=== PATIENT | male | born 1995 | race Caucasian/White ===

== ENCOUNTER 2021-01-06 16:32 | Emergency (ER) | payer OTHER, SELFPAY ==
[2021-01-06 18:07] VITALS: BP 148/95; PULSE 60; RESP 12; TEMP 37.3; O2SAT 99; BMI 33.4
--- NOTE | 2021-01-06 20:08 | XRR_ITS ---
PROCEDURE INFORMATION: Exam: XR Left Foot Exam date and time: 01/06/2021 8:08 PM Age: 25 years old Clinical indication: Injury or trauma; Other: Machinery on foot; Work related; Blunt trauma; Injury date: 01/06/2021; Injury details: [employer] filler picker at work came over on left foot. Majority of injury/pain - great and second toes. TECHNIQUE: Imaging protocol: XR Left foot. Views: 3 or more views. COMPARISON: No relevant prior studies available. FINDINGS: Bones/joints: Mildly comminuted fracture lucencies in the great toe distal phalanx with no significant displacement. Small oblique fracture in the middle phalanx of the 2nd digit involving the proximal base on the medial side of the bone. Intra-articular extension into the PIP joint. Joint space alignments are otherwise normal. Soft tissues: Mild soft tissue edema over the dorsal aspect. XR/XR foot LT min 3V* [id number] IMPRESSION: 1. Acute fracture in the great toe distal phalanx. 2. Acute fracture in the middle phalanx of the 2nd toe.
--- NOTE | 2021-01-06 20:09 | W.ED.EXTPRO ---
HPI - Extremity Problem General: Chief complaint: Extremity Injury, Lower Stated complaint: L FOOT INJURY Time Seen by Provider: 01/06/21 20:07 History of Present Illness: HPI Narrative: 25-year-old male patient comes in today with injury to the left foot great toe. Patient reports a tractor while at work ran over the distal end of his foot mainly involving the first 2 toes of the left foot. Patient is ambulatory. Patient appears well. Review of Systems General: Reports: 10 or more systems reviewed and unremarkable except in HPI and below Musc: Reports: other (Left foot injury.) Physical Exam Const: COMMON NORMALS: no acute distress and patient oriented x3 GENERAL APPEARANCE: cooperative HENMT: COMMON NORMALS: normocephalic and Normal external nose present HEAD & SCALP: normal to inspection and normocephalic NOSE: Normal external nose present MOUTH: Normal oral and palatal mucosa present Eye: GENERAL EYE: appearance normal, both eyes and all related structures Neck/C-Spine: COMMON NORMALS: full ROM Chest: COMMONS NORMALS: normal inspection of the chest Resp: COMMON NORMALS: normal respiratory effort EFFORT & INSPECTION: Yes able to speak in complete sentences Cardio: COMMON NORMALS: regular rate and regular rhythm RATE: regular rate RHYTHM: regular rhythm GI: COMMON NORMALS: non-tender Extremity: NARRATIVE EXTREMITY EXAM: Subungual hematomas noted to the great toe of the left foot. Some ecchymosis is noted to the great toe and second toe of the left foot. No obvious deformity is noted. Neuro: COMMON NORMALS: patient oriented x3 and moves all extremities Psych: COMMON NORMALS: mental status grossly normal and cooperative Skin: COMMON NORMALS: no rashes or lesions noted GENERAL SKIN EXAM: no rashes or lesions noted Course Vital Signs: Vital signs: Vital Signs Temperature 99.2 F 01/06/21 18:07 Pulse Rate 60 01/06/21 18:07 Respiratory Rate 12 01/06/21 18:07 Blood Pressure 148/95 01/06/21 18:07 Pulse Oximetry 99 01/06/21 18:07 MDM - Extremity (Nontraumatic) MDM Narrative: Medical decision making narrative: 25-year-old male patient comes in today with injury to the left foot great toe and second toe. Patient was at work and had a tractor ran over his foot. Patient has tenderness with ambulation. Exam notes ecchymosis to the second and first digit. Patient does have a little dried blood at the base of the nail. Pulses are intact and sensation is intact. Differential diagnosis includes subungual hematoma, contusion, fracture. X-ray notes nondisplaced fractures of the distal phalanx of the first and second digit of the left foot. Reviewed exam with patient with recommendations for treatment with geena tape and dressing for any wound care. We will cover patient with cephalexin 500mg 3 times a day for the next 7 days. Patient reported understanding of care plan and need for follow-up. Discharge Plan Discharge Patient Disposition: Home Clinical Impression: Subungual hematoma Fracture of toe of left foot Qualifiers: Encounter type: initial encounter Toe: unspecified toe Fracture type: closed Fracture alignment: nondisplaced Qualified Code(s): S92.912A - Unspecified fracture of left toe(s), initial encounter for closed fracture Condition: Stable Prescriptions: New cephalexin 500 mg capsule 500 mg PO TID 7 Days Qty: 21 RF: 0 ibuprofen 600 mg tablet 600 mg PO Q6H PRN (Reason: pain) Qty: 30 RF: 0 Discharge Orders: Discharge ED (Routine); Ordered 01/06/21 Ordered By: Orion Sorto Discharge Diet: Usual diet Discharge Activity: Increase activity as tolerated Patient Instructions: Toe Fracture (ED), Opioid Safety Activity Restrictions/Additional Instructions: Wear a good supportive boot or shoe to protect the toe. Increase activity as tolerated. Use acetaminophen or ibuprofen for pain. Take antibiotic 1 tablet 3 times a day for next 7 days. Follow-up with primary care as needed. Return to the ER for new concerns. Stand Alone Forms: Work/School Release Coding Level of Care Code ED Import And Export Clerk for Chg Fwd Exam Comprehensive
[2021-01-06] MEDS: bacitracin ointment Pkt 1 EACH TOPICAL (21:12)
[2021-01-06] MEDS: tetanus-dipt-pertussis 0.5 mL SDV IM (21:12)
== END 2021-01-06 21:16 | disposition home or self-care (01) ==
PROVIDERS: Emergency Provider Nurse Practitioner Family
DX: S92.425A Nondisplaced fracture of distal phalanx of left great toe, initial encounter for closed fracture (principal); S92.522A Displaced fracture of middle phalanx of left lesser toe(s), initial encounter for closed fracture; V84.5XXA Driver of special agricultural vehicle injured in nontraffic accident, initial encounter
CPT/HCPCS: 73630; 90471; 90715; 99283